=== PATIENT | male | born 2000 | race Two or more races ===

== ENCOUNTER 2021-03-26 00:39 | Emergency (ER) | payer OTHER ==
[~2021-03-26] VITALS: Ht 162.6 cm; Wt 72.6 kg
[2021-03-26 01:04] VITALS: BP 169/71
== END 2021-03-26 03:38 | disposition left against medical advice (07) ==
LOC: ER 00:41
DX: R21 Rash and other nonspecific skin eruption (principal); Z53.21 Procedure and treatment not carried out due to patient leaving prior to being seen by health care provider